=== PATIENT | female | born 1980 | race Caucasian/White ===

== ENCOUNTER 2024-01-27 11:17 | Observation (INO) ==
--- NOTE | 2024-01-27 11:30 | Emergency Department Note ---
Impression & Plan Abdominal pain, GI bleed, Dark stools ED Provider Note NAME: SUKI KEITH AGE: 43 SEX: F : 1980 ARRIVES VIA: Walk-In INFORMANT: Patient ED PROVIDER(S): Tony Clemente DO CHIEF COMPLAINT: Bright red blood and dark tarry stools HPI: Patient is a 43-year-old female with a past medical history of anxiety, depression, colitis, GERD with known stomach ulcers who presents to the ER for bright red blood per rectum that started yesterday and turned into black stools. She has had 3 episodes of black stools today combination with some bright red intermittently. She denies any blood thinners. No headache or change in vision. No chest pain or shortness of breath. No dysuria, urgency, or frequency. No other exacerbating or remitting factors. ADDITIONAL HISTORY OBTAINED: Per HPI Chronic Medical/Social Conditions Affecting Care: Per HPI PAST MEDICAL HISTORY:See Below PAST SURGICAL HISTORY:See Below FAMILY HISTORY:See Below SOCIAL HISTORY:See Below HOME MEDICATIONS:See Below ALLERGIES:See Below VITALS:See Below PHYSICAL EXAMINATION: GENERAL: Sitting up in bed, alert, well appearing, well nourished, no distress, non-toxic EYE EXAM: normal conjunctiva. PERRL and EOM's grossly intact. OROPHARYNX: mucous membranes are moist NECK: supple, no nuchal rigidity, no adenopathy, non-tender LUNGS: Clear to auscultation. Normal chest wall mechanics HEART: no murmurs, S1 normal and S2 normal ABDOMEN: abdomen soft, non-tender, normo-active bowel sounds, no masses, no rebound or guarding. BACK: Back is symmetrical on inspection and there is no deformity, no midline tenderness, no CVA tenderness. RECTAL: Hem neg no stool SKIN: no rashes and no bruising UPPER EXTREMITIES: upper extremities are grossly normal. LOWER EXTREMITIES: No pitting edema. NEURO EXAM: Normal sensorium, cranial nerves II-XII grossly intact, normal speech, no gross weakness of arms, no gross weakness of legs. MEDICAL DECISION MAKING: Patient is a 43-year-old female who presents ER for the above-stated complaint. External records were reviewed and gastroenterology's EGD performed at the end of December 2023 shows a gastric ulcer as well as a duodenal ulcer. IV was established blood work obtained. Labs show no significant leukocytosis or anemia. BMP with a slightly elevated chloride. No elevation in BUN to suggest an upper GI bleed. LFTs bilirubin is unremarkable. Lipase was normal. UA was negative. was negative. Rectal had no stool and was heme-negative. I discussed this with Dr. Mcfarland to see if this was someone they went to follow-up as an outpatient or observe overnight. They would prefer to admit the patient from a GI standpoint and watch closely with a history of gastric and duodenal ulcers. Patient has stopped the NSAIDs which she believes was the cause of her ulcers. Discussed case with the hospitalist for further evaluation management treatment. Patient was given fluids as well as Protonix. Consults/Care Managements Discussions: Per MDM Triage Nursing notes reviewed. Limited review of prior medical records performed Vital Signs: reviewed and remarkable for no significant abnormalities Differential diagnosis: Differential diagnoses includes but is not limited to gastritis, peptic ulcer disease, GERD, gallbladder disease, pancreatitis, small bowel obstruction, appendicitis, diverticulitis, hernia, urinary tract infection, torsion, /ectopic (if female), perforation, trauma, infectious. ER treatment provided: See below Diagnostics interpreted by me include EKG and cardiac monitoring as listed below: -Cardiac Monitoring: An order was placed for continuous cardiac monitoring. The monitor shows a rate of 70 with sinus rhythm. -ECG: none -Laboratory studies:Interpreted by me as stated above in MDM and shown below. Imaging studies: Xrays: As interpreted by me:none CTs show: none Procedures:none Critical Care: None Past Med/Surg History Problem List (Updated 01/27/24 @ 15:25 by Tony Clemente DO) Dark stools (Acute) GI bleed (Acute) Abdominal pain (Acute) GI bleed GERD (gastroesophageal reflux disease) Encounter for pre-operative examination Anxiety Depression Colitis Diarrhea Bloating Bloody stools Medical History (Updated 01/27/24 @ 15:25 by Tony Clemente DO) Duodenal ulcer Right hip pain pt recently had x-ray and mri, has potential hip labrum tear History of cardiac murmur as a child Colitis Bloating Diarrhea Chronic right ear pain unsure of cause, has seen ENT in past Hx of migraines Chronic headaches Surgical History Hx of laparoscopy x 4 Hx of appendectomy (1992) Family History Denies family history of Crohn's disease Colorectal cancer Ulcerative colitis Social History Smoking Status: Never smoker Second Hand Exposure: No; Do You Dip or Chew Tobacco: No; Hx Alcohol Use: Yes Hx Substance Use: No Preferred Language: Serbian Communication Ability: Effective French Drawer Required: No Beliefs That Will Affect Care: None Current Living Situation: Spouse Feels Safe at Home: Yes Assistive Devices: None Allergies Allergies Allergy/AdvReac Type Severity Reaction Status Date / Time No Known Allergies Allergy Verified 01/12/24 14:30 Home Meds Home Medications Medication Instructions Recorded Confirmed acetaminophen-caffeine 500 mg-65 1 tab PO Q12H PRN Pain 12/29/23 01/27/24 mg tablet ibuprofen 400 mg tablet 400 mg PO Q6H PRN Pain 12/29/23 01/27/24 Pepto-Bismol 1 dose PO DIRECTED PRN Gi Upset 01/27/24 01/27/24 Previous Rx's Medication Instructions Recorded omeprazole 40 mg capsule,delayed 40 mg PO DAILY #90 caps 01/12/24 release Results & Data (ED) Vital Signs Vital Signs - 24 hr 01/27/24 11:20 01/27/24 11:39 01/27/24 11:51 Temperature 36.5 C Temperature Source Temporal Artery Scan Pulse Rate 72 65 72 Pulse Rate [Apical] Pulse Rate from SpO2 Sensor Pulse Rhythm Pulse Rhythm [Apical] Pulse Strength [Apical] Respiratory Rate 19 16 Respiratory Effort / Characteristics Non-Labored Spontaneous Respiratory Depth Normal Respiratory Pattern Blood Pressure 114/75 Blood Pressure [Right Arm] Blood Pressure Mean 88 Blood Pressure Mean [Right Arm] Pulse Oximetry 99 Oxygen Delivery Method Room Air Sepsis Recent Fever Within 48 Hours No Sepsis New/Unexplained Change in Mental Status No Sepsis Action Taken by Nursing No Action Required 01/27/24 11:51 01/27/24 11:53 01/27/24 11:53 Temperature Temperature Source Pulse Rate 68 Pulse Rate [Apical] Pulse Rate from SpO2 Sensor Pulse Rhythm Pulse Rhythm [Apical] Pulse Strength [Apical] Respiratory Rate 19 Respiratory Effort / Characteristics Respiratory Depth Respiratory Pattern Blood Pressure 115/76 115/76 Blood Pressure [Right Arm] Blood Pressure Mean 88 88 Blood Pressure Mean [Right Arm] Pulse Oximetry Oxygen Delivery Method Sepsis Recent Fever Within 48 Hours Sepsis New/Unexplained Change in Mental Status Sepsis Action Taken by Nursing 01/27/24 11:54 01/27/24 11:55 01/27/24 11:55 Temperature Temperature Source Pulse Rate 61 62 Pulse Rate [Apical] 64 Pulse Rate from SpO2 Sensor 61 Pulse Rhythm Regular Pulse Rhythm [Apical] Regular Pulse Strength [Apical] Normal Respiratory Rate 12 18 14 Respiratory Effort / Characteristics Non-Labored Spontaneous Respiratory Depth Normal Respiratory Pattern Regular Blood Pressure Blood Pressure [Right Arm] 115/76 Blood Pressure Mean Blood Pressure Mean [Right Arm] 89 Pulse Oximetry 98 98 98 Oxygen Delivery Method Room Air Room Air Sepsis Recent Fever Within 48 Hours Sepsis New/Unexplained Change in Mental Status Sepsis Action Taken by Nursing 01/27/24 12:00 01/27/24 12:00 01/27/24 12:03 Temperature Temperature Source Pulse Rate 67 Pulse Rate [Apical] Pulse Rate from SpO2 Sensor 66 Pulse Rhythm Pulse Rhythm [Apical] Pulse Strength [Apical] Respiratory Rate 13 Respiratory Effort / Characteristics Respiratory Depth Respiratory Pattern Blood Pressure 108/80 108/80 Blood Pressure [Right Arm] Blood Pressure Mean 86 86 Blood Pressure Mean [Right Arm] Pulse Oximetry 100 Oxygen Delivery Method Sepsis Recent Fever Within 48 Hours Sepsis New/Unexplained Change in Mental Status Sepsis Action Taken by Nursing 01/27/24 12:24 01/27/24 12:30 01/27/24 12:30 Temperature Temperature Source Pulse Rate 70 Pulse Rate [Apical] Pulse Rate from SpO2 Sensor 70 Pulse Rhythm Pulse Rhythm [Apical] Pulse Strength [Apical] Respiratory Rate 19 Respiratory Effort / Characteristics Respiratory Depth Respiratory Pattern Blood Pressure 117/75 117/75 Blood Pressure [Right Arm] Blood Pressure Mean 86 86 Blood Pressure Mean [Right Arm] Pulse Oximetry 100 Oxygen Delivery Method Sepsis Recent Fever Within 48 Hours Sepsis New/Unexplained Change in Mental Status Sepsis Action Taken by Nursing 01/27/24 12:33 01/27/24 12:48 01/27/24 13:00 Temperature Temperature Source Pulse Rate 71 75 Pulse Rate [Apical] Pulse Rate from SpO2 Sensor 71 72 Pulse Rhythm Pulse Rhythm [Apical] Pulse Strength [Apical] Respiratory Rate 17 25 H Respiratory Effort / Characteristics Respiratory Depth Respiratory Pattern Blood Pressure 110/68 Blood Pressure [Right Arm] Blood Pressure Mean 82 Blood Pressure Mean [Right Arm] Pulse Oximetry 100 96 Oxygen Delivery Method Sepsis Recent Fever Within 48 Hours Sepsis New/Unexplained Change in Mental Status Sepsis Action Taken by Nursing 01/27/24 13:24 Temperature Temperature Source Pulse Rate 69 Pulse Rate [Apical] Pulse Rate from SpO2 Sensor 69 Pulse Rhythm Pulse Rhythm [Apical] Pulse Strength [Apical] Respiratory Rate 19 Respiratory Effort / Characteristics Respiratory Depth Respiratory Pattern Blood Pressure Blood Pressure [Right Arm] Blood Pressure Mean Blood Pressure Mean [Right Arm] Pulse Oximetry 99 Oxygen Delivery Method Sepsis Recent Fever Within 48 Hours Sepsis New/Unexplained Change in Mental Status Sepsis Action Taken by Nursing Laboratory Data 01/27/24 11:52 01/27/24 11:52 Lab Results 01/27/24 01/27/24 01/27/24 Range/Units 11:52 11:59 12:07 WBC 7.03 (4.8-10.8) K/ul RBC 4.18 L (4.20-5.40) M/uL Hgb 12.2 (12.0-16.0) g/dl Hct 37.5 (37.0-47.0) % MCV 89.7 (80.0-100.0) fL MCH 29.2 (25.0-34.0) pg MCHC 32.5 (32.0-36.0) g/dL RDW Std Deviation 39.8 (36.4-46.3) fL RDW Coeff of Michelle 12.2 (11.5-14.5) % Plt Count 254 (130-400) K/uL MPV 10.1 (9.4-12.4) fL Immature Gran % (Auto) 0.4 % Neut % (Auto) 67.8 % Lymph % (Auto) 22.0 % [place] % (Auto) 8.0 % Eos % (Auto) 1.4 % Baso % (Auto) 0.4 % Neut # (Auto) 4.76 (1.40-6.50) K/uL Lymph # (Auto) 1.55 (1.20-3.40) K/uL [place] # (Auto) 0.56 (0.11-0.59) K/uL Eos # (Auto) 0.10 (0.00-0.50) K/uL Baso # (Auto) 0.03 (0.00-0.20) K/uL Immature Gran # (Auto) 0.03 (0.01-0.20) K/uL Sodium 139 (136-145) mmol/L Potassium 3.6 (3.5-5.1) mmol/L Chloride 108 H (98-107) mmol/L Carbon Dioxide 24 (21-32) mmol/L Anion Gap 7 (3-11) BUN 11 (6-23) mg/dl Creatinine 0.75 (0.6-1.2) mg/dl Est Cr Clr Drug Dosing 90.0 ml/min Est GFR ( Amer) 113.1 ml/min Est GFR (Non-Af Amer) 97.6 ml/min BUN/Creatinine Ratio 14.7 (10-20) Glucose 94 (70-99(Fasting)) mg/dl Calcium 9.0 (8.6-10.3) mg/dl Total Bilirubin 0.7 (0.2-1.0) mg/dl AST 18 (13-39) U/L ALT 20 (7-52) U/L Alkaline Phosphatase 56 (34-104) U/L Total Protein 6.4 (6.0-8.3) gm/dl Albumin 4.5 (3.4-5.0) gm/dl Globulin 1.9 L (2.5-4.0) gm/dl Albumin/Globulin Ratio 2.4 H (0.9-2) Lipase 31 (11-82) U/L Urine Color Yellow Urine Appearance Clear (Clear) Urine pH 6.5 (4.5-7.5) Ur Specific [place] 1.006 (1.000-1.030) Urine Protein Negative (Negative) Urine Glucose (UA) Negative (Negative) Urine Ketones Negative (Negative) Urine Blood Negative (Negative) Urine Nitrite Negative (Negative) Urine Bilirubin Negative (Negative) Urine Urobilinogen Negative (Negative) Ur Leukocyte Esterase Negative (Negative) POC Ur Test NEG (NEG) Administered Medications Discontinued Medications Acetaminophen (Acetaminophen 325 Mg Tab) 650 mg PO NOW STA Stop: 01/27/24 13:22 Last Admin: 01/27/24 13:42 Dose: 650 mg Documented By: AM Sodium Chloride (Nss) 1,000 mls @ 999 mls/hr IV .Q1H1M ONE Stop: 01/27/24 12:28 Last Infusion: 01/27/24 13:43 Dose: Infused Documented By: Admin: 01/27/24 12:03 Dose: 999 mls/hr Documented By: JN Pantoprazole Sodium 40 mg/ (Syringe) 10 mls @ 5 mls/min IV NOW ONE Stop: 01/27/24 11:49 Last Admin: 01/27/24 12:10 Dose: 5 mls/min Documented By: JN Discharge Plan Visit Data Chief Complaint: GI Assessment Stated Complaint: GI PROBLEMS, BLACK STOOL, ABD PAIN, REF BY DOC ED Provider: Tony Clemente Discharge Problem: Abdominal pain, GI bleed, Dark stools Forms Stand Alone Forms: [employer] Prescriptions Prescriptions: No Action omeprazole 40 mg capsule,delayed release(DR/EC) 40 mg PO DAILY Qty: 90 3RF acetaminophen-caffeine 500-65 mg Tablet 1 tab PO Q12H PRN (Reason: Pain) ibuprofen 400 mg Tablet 400 mg PO Q6H PRN (Reason: Pain) Pepto-Bismol 1 dose PO DIRECTED PRN (Reason: Gi Upset) Referrals Referrals: Mushtaq Delgadillo [Primary Care Provider] - Discharge Problem: Abdominal pain Qualifiers: Abdominal location: unspecified location Qualified Code(s): R10.9 - Unspecified abdominal pain GI bleed Qualifiers: GI bleed type/associated pathology: unspecified gastrointestinal hemorrhage type Qualified Code(s): K92.2 - Gastrointestinal hemorrhage, unspecified
[2024-01-27] MEDS: SODIUM CHLORIDE 0.9% 1,000 ML IV ONE (12:03)
[2024-01-27] MEDS: PANTOprazole 40 MG in SYRINGE 0 ML IV ONE ×2 (12:10→16:15)
[2024-01-27 12:18] LABS: Appearance Urine Clear (Clear); Bilirubin Urine Negative (Negative); Blood Urine Negative (Negative); Color Urine Yellow; Glucose Urine UA Negative (Negative); Ketones Urine Negative (Negative); Leukocyte Esterase Urine Negative (Negative); Nitrite Urine Negative (Negative); Protein Urine Negative (Negative); Specific Gravity Urine 1.006 (1.000-1.030); Urobilinogen Urine Negative (Negative); pH Urine 6.5 (4.5-7.5)
[2024-01-27 12:50] LABS: Basophils # (auto) 0.03 K/uL (0.00-0.20); Basophils % (auto) 0.4 %; Eosinophils % (auto) 1.4 %; Hematocrit (blood only) 37.5 % (37.0-47.0); Hemoglobin 12.2 g/dl (12.0-16.0); Immature Granulocytes # (auto) 0.03 K/uL (0.01-0.20); Immature Granulocytes % (auto) 0.4 %; Lymphocytes # (auto) 1.55 K/uL (1.20-3.40); Mean Corpuscular Hemoglobin 29.2 pg (25.0-34.0); Mean Corpuscular Hgb Conc 32.5 g/dL (32.0-36.0); Mean Corpuscular Volume 89.7 fL (80.0-100.0); Mean Platelet Volume 10.1 fL (9.4-12.4); Monocytes # (auto) 0.56 K/uL (0.11-0.59); Neutrophils # (auto) 4.76 K/uL (1.40-6.50); Neutrophils % (auto) 67.8 %; Platelet Count 254 K/uL (130-400); RDW Coefficient of Variation 12.2 % (11.5-14.5); RDW Standard Deviation 39.8 fL (36.4-46.3); Red Blood Count 4.18 M/uL (4.20-5.40); White Blood Count 7.03 K/ul (4.8-10.8)
[2024-01-27 12:54] LABS: Alanine Aminotransferase 20 U/L (7-52); Albumin Globulin Ratio 2.4 (0.9-2); Albumin Level 4.5 gm/dl (3.4-5.0); Alkaline Phosphatase 56 U/L (34-104); Anion Gap 7 (3-11); Aspartate Aminotransferase 18 U/L (13-39); BUN Creatinine Ratio 14.7 (10-20); Bilirubin,Total 0.7 mg/dl (0.2-1.0); Blood Urea Nitrogen 11 mg/dl (6-23); Carbon Dioxide 24 mmol/L (21-32); Chloride 108 mmol/L (98-107); Est GFR (African American) 113.1 ml/min; Est GFR (Non-African American) 97.6 ml/min; Globulin 1.9 gm/dl (2.5-4.0); Glucose 94 mg/dl (70-99(Fasting)); Lipase 31 U/L (11-82); Potassium 3.6 mmol/L (3.5-5.1); Sodium 139 mmol/L (136-145); Total Protein 6.4 gm/dl (6.0-8.3)
[2024-01-27] MEDS: ACETAMINOPHEN 325 MG TAB PO STA (13:42)
--- NOTE | 2024-01-27 13:51 | Gastrointestinal Consultation ---
Date of Consultation January 27, 2024 Assessment & Plan (1) Bloody stools: 43 year old female with a recent EGD showing non-bleeding gastric ulcers, non- bleeding duodenal ulcers presenting with epigastric pain x 1 day w/ both black and bloody stools. She took Pepto x 1 dose. She is hemodynamically stable, HGB 12.2. She ate about a handful of almonds and a few sips of water around 03/1030 this AM. Maintain NPO status Arrange EGD timing pending discussion with attending and anesthesia IV PPI bolus/drip Trend HGB Monitor GI output Transfuse PRN per primary team We appreciate assistance in the management of any serological abnormality and corrections to include: hemoglobin >7, INR <2, platelets >50,000, potassium levels >3.5 but <5.3, and sodium levels within 5 points of the reference range prior to endoscopic evaluation. I spent a total of 60 minutes on the date of service in review of patient's record, and previously obtained information in person and appropriate medical visit, discussion and education of plan, with patient and/or caregiver, placing orders for tests/referral/procedures as medically necessary and documentation of pertinent clinical information in patient's medical records for their visit today. Supervising Physician Co-Signing Physician Notes I saw and examined this patient with our nurse practitioner and agree with her assessment and plan. Patient presents with recurrent GI bleeding. Hemodynamically stable. Abdomen soft nontender. Recent endoscopy revealed gastric and duodenal ulcers. Colonoscopy was negative. Etiology of recurrent GI bleeding is unclear. To consider small bowel source for bleeding in light of recent workup. However in light of recent endoscopy findings we will repeat endoscopy to exclude bleeding from the ulcers. As well as exclude other etiologies that could have been missed such as a [place]. If studies unrevealing need to consider a capsule endoscopy at some point. History of Present Illness Reason for Consultation: melena, BRBPR Requesting Physician: Bryn Attending Physician: Bryn History of Present Illness 43 year old female with history of gastric ulcer, PUD on EGD presenting with epigastric pain, epigastric pressure with report of diarrhea, black stool and BRBPR x 1 day. Pt was seen and evaluated, chart reviewed. Suggests she stopped the daily NSAIDs since finding out about and her PUD. Yesterday, developed upper abd discomfort explained as a pressure. Shortly after this started with diarrhea, BRBPR. Took two pepto's. Stool turned black, then was mixed with BRBPR. She did see some drops of BRB as well. No report of nausea/vomiting. No prior history of coffee ground emesis or hematemesis. No fever, chills, CP, SOB. EGD 2023: - Normal esophagus. - Acute gastritis, characterized by erythema. Biopsied. - Non-bleeding gastric ulcers with no stigmata of bleeding. - Non-bleeding duodenal ulcer with no stigmata of bleeding. Biopsied. Colonoscopy 2023: - The examined portion of the ileum was normal. - The examination was otherwise normal on direct and retroflexion views. - Biopsies were taken with a cold forceps from the entire colon for evaluation of microscopic colitis. Allergies Allergy/AdvReac Type Severity Reaction Status Date / Time No Known Allergies Allergy Verified 01/12/24 14:30 Home Medications Medication Instructions Recorded Confirmed Type acetaminophen-caffeine 500 mg-65 1 tab PO Q12H PRN Pain 12/29/23 01/27/24 History mg tablet ibuprofen 400 mg tablet 400 mg PO Q6H PRN Pain 12/29/23 01/27/24 History omeprazole 40 mg capsule,delayed 40 mg PO DAILY #90 caps 01/12/24 01/27/24 Rx release Patient History Medical History Right hip pain History of cardiac murmur as a child Colitis Bloating Diarrhea Chronic right ear pain Hx of migraines Chronic headaches Surgical History Hx of laparoscopy Hx of appendectomy (1992) Family History Denies family history of Crohn's disease Colorectal cancer Ulcerative colitis Social History Smoking Status: Never smoker Second Hand Exposure: No; Do You Dip or Chew Tobacco: No; Hx Alcohol Use: Yes Hx Substance Use: No Preferred Language: Malagasy Communication Ability: Effective Director Of Field Coordination Required: No Beliefs That Will Affect Care: None Current Living Situation: Spouse Feels Safe at Home: Yes Assistive Devices: None Review of Systems Review of Systems: All other findings negative except as noted in HPI. Physical Exam Constitutional: WD/WN, vitals as above Respiratory: normal respiratory effort, lungs clear to auscultation Cardiovascular: RRR, no murmur, no edema Gastrointestinal (Abdomen): Inspection/Auscultation: normal bowel sounds Percussion/Palpation: + abdomen tender and abdomen soft; no guarding and abdomen not rigid Skin: no rashes, warm and dry Results & Data Vital Signs (Past 12 Hours) Vital Signs Temp Pulse Pulse Resp BP BP Pulse Ox 01/27/24 13:24 69 19 99 01/27/24 13:00 110/68 01/27/24 12:48 75 25 H 96 01/27/24 12:33 71 17 100 01/27/24 12:30 117/75 01/27/24 12:30 117/75 01/27/24 12:24 70 19 100 01/27/24 12:03 67 13 100 01/27/24 12:00 108/80 01/27/24 12:00 108/80 01/27/24 11:55 62 14 98 01/27/24 11:55 64 18 115/76 98 01/27/24 11:54 61 12 98 01/27/24 11:53 115/76 01/27/24 11:53 115/76 01/27/24 11:51 68 19 01/27/24 11:51 72 01/27/24 11:39 65 16 01/27/24 11:20 36.5 C 72 19 114/75 99 O2 Del Method 01/27/24 13:24 01/27/24 13:00 01/27/24 12:48 01/27/24 12:33 01/27/24 12:30 01/27/24 12:30 01/27/24 12:24 01/27/24 12:03 01/27/24 12:00 01/27/24 12:00 01/27/24 11:55 Room Air 01/27/24 11:55 Room Air 01/27/24 11:54 01/27/24 11:53 01/27/24 11:53 01/27/24 11:51 01/27/24 11:51 01/27/24 11:39 01/27/24 11:20 Room Air Laboratory Results 01/27/24 01/27/24 01/27/24 Range/Units 12:07 11:59 11:52 WBC 7.03 (4.8-10.8) K/ul RBC 4.18 L (4.20-5.40) M/uL Hgb 12.2 (12.0-16.0) g/dl Hct 37.5 (37.0-47.0) % MCV 89.7 (80.0-100.0) fL MCH 29.2 (25.0-34.0) pg MCHC 32.5 (32.0-36.0) g/dL RDW Std Deviation 39.8 (36.4-46.3) fL RDW Coeff of Michelle 12.2 (11.5-14.5) % Plt Count 254 (130-400) K/uL MPV 10.1 (9.4-12.4) fL Immature Gran % (Auto) 0.4 % Neut % (Auto) 67.8 % Lymph % (Auto) 22.0 % [place] % (Auto) 8.0 % Eos % (Auto) 1.4 % Baso % (Auto) 0.4 % Neut # (Auto) 4.76 (1.40-6.50) K/uL Lymph # (Auto) 1.55 (1.20-3.40) K/uL [place] # (Auto) 0.56 (0.11-0.59) K/uL Eos # (Auto) 0.10 (0.00-0.50) K/uL Baso # (Auto) 0.03 (0.00-0.20) K/uL Immature Gran # (Auto) 0.03 (0.01-0.20) K/uL Sodium 139 (136-145) mmol/L Potassium 3.6 (3.5-5.1) mmol/L Chloride 108 H (98-107) mmol/L Carbon Dioxide 24 (21-32) mmol/L Anion Gap 7 (3-11) BUN 11 (6-23) mg/dl Creatinine 0.75 (0.6-1.2) mg/dl Est Cr Clr Drug Dosing 90.0 ml/min Est GFR ( Amer) 113.1 ml/min Est GFR (Non-Af Amer) 97.6 ml/min BUN/Creatinine Ratio 14.7 (10-20) Glucose 94 (70-99(Fasting)) mg/dl Calcium 9.0 (8.6-10.3) mg/dl Total Bilirubin 0.7 (0.2-1.0) mg/dl AST 18 (13-39) U/L ALT 20 (7-52) U/L Alkaline Phosphatase 56 (34-104) U/L Total Protein 6.4 (6.0-8.3) gm/dl Albumin 4.5 (3.4-5.0) gm/dl Globulin 1.9 L (2.5-4.0) gm/dl Albumin/Globulin Ratio 2.4 H (0.9-2) Lipase 31 (11-82) U/L Urine Color Yellow Urine Appearance Clear (Clear) Urine pH 6.5 (4.5-7.5) Ur Specific [place] 1.006 (1.000-1.030) Urine Protein Negative (Negative) Urine Glucose (UA) Negative (Negative) Urine Ketones Negative (Negative) Urine Blood Negative (Negative) Urine Nitrite Negative (Negative) Urine Bilirubin Negative (Negative) Urine Urobilinogen Negative (Negative) Ur Leukocyte Esterase Negative (Negative) POC Ur Test NEG (NEG) PG Care Time/CCT Total # of Minutes Spent Total Time Spent with Patient: Total time spent is greater than 50% in coordination of care (as documented) at patient's floor/unit and/or counseling patient: Coding Level of Care Code 67457 IN/OBS CONSULT LVL 4,60M Diagnoses Bloody stools K92.1
--- NOTE | 2024-01-27 14:37 | Anesthesiology Consultation ---
Date of Service January 27, 2024 Assessment & Plan (1) Encounter for pre-operative examination: Chart Review Chart Review: Acceptable Risk for Surgery History Surgery Operation Date: 01/27/24 07:00 Proposed Procedures p Esophagogastroduodenoscopy Dr. Bruna Mcfarland MD Height/Weight Height: 5 ft 3 in Weight: 68.8 kg Allergies Allergy/AdvReac Type Severity Reaction Status Date / Time No Known Allergies Allergy Verified 01/12/24 14:30 Medications Home Medications Medication Instructions Recorded Confirmed Last Taken acetaminophen-caffeine 500 mg-65 1 tab PO Q12H PRN Pain 12/29/23 01/27/24 Unknown mg tablet ibuprofen 400 mg tablet 400 mg PO Q6H PRN Pain 12/29/23 01/27/24 Unknown omeprazole 40 mg capsule,delayed 40 mg PO DAILY #90 caps 01/12/24 01/27/24 Unknown release Pepto-Bismol 1 dose PO DIRECTED PRN Gi Upset 01/27/24 01/27/24 Unknown Past Medical History Medical History (Updated 01/27/24 @ 14:37 by Iglesia Horton MD) Duodenal ulcer Right hip pain pt recently had x-ray and mri, has potential hip labrum tear History of cardiac murmur as a child Colitis Bloating Diarrhea Chronic right ear pain unsure of cause, has seen ENT in past Hx of migraines Chronic headaches Past Family History Family History Denies family history of Crohn's disease Colorectal cancer Ulcerative colitis Past Surgical History Surgical History Hx of laparoscopy x 4 Hx of appendectomy (1992) Social History Smoking Status: Never smoker Do You Dip or Chew Tobacco: No Hx Alcohol Use: Yes alcohol intake frequency: a few times a month Hx Substance Use: No substance use type: does not use Physical Exam Vital Signs Last Vital Signs Temp 36.5 C 01/27/24 11:20 Pulse 69 01/27/24 13:24 Resp 19 01/27/24 13:24 BP 110/68 01/27/24 13:00 Pulse Ox 99 01/27/24 13:24 O2 Del Method Room Air 01/27/24 11:55 Testing Laboratory Results 01/27/24 11:52 01/27/24 11:52 Urine Color Yellow 01/27/24 11:59 Urine Appearance Clear (Clear) 01/27/24 11:59 Urine pH 6.5 (4.5-7.5) 01/27/24 11:59 Ur Specific [place] 1.006 (1.000-1.030) 01/27/24 11:59 Urine Protein Negative (Negative) 01/27/24 11:59 Urine Glucose (UA) Negative (Negative) 01/27/24 11:59 Urine Ketones Negative (Negative) 01/27/24 11:59 Urine Nitrite Negative (Negative) 01/27/24 11:59 Ur Leukocyte Esterase Negative (Negative) 01/27/24 11:59 01/27/24 12:07 POC Ur Test NEG
--- NOTE | 2024-01-27 14:39 | History & Physical Report ---
Date of Service January 27, 2024 Assessment & Plan (1) GI bleed: Plan: Bright red blood in stool and abdominal cramping on 01/24-01/25 Melena the morning of 01/26 No hx of GI bleeds Hx of EGD on January 04 with gastric/duodenal ulcers Gastrology consult appreciated EGD scheduled the evening of 01/26 N.p.o. for now Trend H&H q4h x 2 Type and screen ordered; will defer ordering blood at this time as patient's Hgb is 12.2 Blood consent form obtained if needed Protonix 80 mg IV bolus + drip IV acetaminophen and Zofran PRN A.m. CBC, BMP, mag (2) Bloody stools: (3) Colitis: (4) Depression: (5) Anxiety: Plan Disposition: Admit to [facility] telemetry Full code N.p.o. for now, then advance to clear liquid diet as tolerated VTE PPx: SCDs; will defer chemical DVT PPx in the setting of acute GI bleed History of Present Illness Chief Complaint: GI bleed Primary Care Provider: Mushtaq Mejia is a pleasant 43-year-old female with PMH of bloody stools, GERD, colitis, anxiety, and depression. She presented for abdominal discomfort, dizziness, and bright red bloody stools that began on Wednesday 01/24. Patient reports she has been having episodes of abdominal pain and diarrhea over the past couple weeks that last 24 to 48 hours. On Tuesday she started having abdominal pain just below the umbilicus and cramping that she compared to labor pains. Radiation to the lower back. Pain is intermittent, and she characterizes it as a stabbing pain at times, and throbbing pain in her back. She rates it 3/10 at present, 8/10 at worst. Yesterday morning she was having diarrhea from 3 to 5 AM, and she reports it was not liquidy but like a "red jelly". Then this morning she had dark tarry stool for the first time. She has not been taking any pain medicine at home, as she was told to stop taking Excedrin for her headaches after being diagnosed with gastric/duodenal ulcers in December. She had both an EGD/colonoscopy on January 04; she reports that the colonoscopy was fine, but she had gastric/duodenal ulcers on EGD. No prior history of GI bleeds. She reports that she tried eating something this morning (waffles) but had to get up and go to the bathroom in the middle eating (within minutes) as the abdominal pain returned. Patient took omeprazole this morning, and this is her only regular medication. No past medical history of blood transfusions. She denies smoking, tobacco use, recent alcohol use. Patient's vitals are stable at time of admission. ED course: Protonix 40 mg IV Acetaminophen 650 mg p.o. NSS 1000 mL IV ROS: Patient endorses dizziness with movements the last couple days, heart burn and chest tightness last night (which patient reports resolved; did not feel like past episodes of heart burn; felt like something was "stuck" in her chest wall), and diarrhea (both bright red blood + melena). Patient denies fever, chills, night-sweats, headaches, chest pain, pain in left shoulder or arm, chest palpitations, pleuritic CP, hemoptysis, cough, nausea, vomiting, blood in urine, burning with urination, saddle anesthesia, or num bness/tingling in the arms or legs. Allergies Allergy/AdvReac Type Severity Reaction Status Date / Time No Known Allergies Allergy Verified 01/12/24 14:30 Home Medications Medication Instructions Recorded Confirmed Type acetaminophen-caffeine 500 mg-65 1 tab PO Q12H PRN Pain 12/29/23 01/27/24 History mg tablet ibuprofen 400 mg tablet 400 mg PO Q6H PRN Pain 12/29/23 01/27/24 History omeprazole 40 mg capsule,delayed 40 mg PO DAILY #90 caps 01/12/24 01/27/24 Rx release Pepto-Bismol 1 dose PO DIRECTED PRN Gi Upset 01/27/24 01/27/24 History Past Med/Surg History Problem List (Updated 01/27/24 @ 15:25 by Tony Clemente DO) Dark stools (Acute) GI bleed (Acute) Abdominal pain (Acute) GI bleed GERD (gastroesophageal reflux disease) Encounter for pre-operative examination Anxiety Depression Colitis Diarrhea Bloating Bloody stools Medical History (Updated 01/27/24 @ 15:25 by Tony Clemente DO) Duodenal ulcer Right hip pain pt recently had x-ray and mri, has potential hip labrum tear History of cardiac murmur as a child Colitis Bloating Diarrhea Chronic right ear pain unsure of cause, has seen ENT in past Hx of migraines Chronic headaches Surgical History Hx of laparoscopy x 4 Hx of appendectomy (1992) Family History Denies family history of Crohn's disease Colorectal cancer Ulcerative colitis Social History Smoking Status: Never smoker Second Hand Exposure: No; Do You Dip or Chew Tobacco: No; Hx Alcohol Use: Yes Hx Substance Use: No Preferred Language: Ukrainian Communication Ability: Effective Regional Education Manager Required: No Beliefs That Will Affect Care: None Current Living Situation: Spouse Feels Safe at Home: Yes Assistive Devices: None Review of Systems Review of Systems: See HPI above Physical Exam Physical Exam: General: no acute distress; anxious; pleasant affect; non-toxic appearing; well- nourished; cooperative; SpO2 99% on RA HEENT: normocephalic, atraumatic; no scleral icterus; PERRLA; vision and hearing grossly intact Neck: supple; no lymphadenopathy; trachea midline Skin: warm, dry without signs of tenting; no cyanosis; no rashes, bruising, lesions, or erythema noted CV: chest wall NTP; RRR; S1/S2 normal; no murmurs/rubs/gallops; pulses intact and symmetric at radial, DP, and PT Lungs: no acute respiratory distress; symmetrical chest wall expansion; clear breath sounds across all lung rodrigez w/o adventitious sounds; no wheezing ABD: Soft; tender to palpation just below the umbilicus; no rashes or bruising on the abdomen or flanks bilaterally; BS present; no rebound/guarding; no distention MSK: no tics or fasciculations; no edema noted in the LEs b/l, nonerythematous Neuro: A&Ox3; normal mood and affect; fluent speech; no focal deficits; sensation grossly intact in the LEs b/l Results & Data Results & Data Vital Signs (Past 12 Hours) Vital Signs Temp Pulse Pulse Resp BP BP Pulse Ox 01/27/24 13:24 69 19 99 01/27/24 13:00 110/68 01/27/24 12:48 75 25 H 96 01/27/24 12:33 71 17 100 01/27/24 12:30 117/75 01/27/24 12:30 117/75 01/27/24 12:24 70 19 100 01/27/24 12:03 67 13 100 01/27/24 12:00 108/80 01/27/24 12:00 108/80 01/27/24 11:55 62 14 98 01/27/24 11:55 64 18 115/76 98 01/27/24 11:54 61 12 98 01/27/24 11:53 115/76 01/27/24 11:53 115/76 01/27/24 11:51 68 19 01/27/24 11:51 72 01/27/24 11:39 65 16 01/27/24 11:20 36.5 C 72 19 114/75 99 O2 Del Method 01/27/24 13:24 01/27/24 13:00 01/27/24 12:48 01/27/24 12:33 01/27/24 12:30 01/27/24 12:30 01/27/24 12:24 01/27/24 12:03 01/27/24 12:00 01/27/24 12:00 01/27/24 11:55 Room Air 01/27/24 11:55 Room Air 01/27/24 11:54 01/27/24 11:53 01/27/24 11:53 01/27/24 11:51 01/27/24 11:51 01/27/24 11:39 01/27/24 11:20 Room Air Laboratory Results Abnormal lab results 01/27/24 Range/Units 11:52 RBC 4.18 L (4.20-5.40) M/uL Chloride 108 H (98-107) mmol/L Globulin 1.9 L (2.5-4.0) gm/dl Albumin/Globulin Ratio 2.4 H (0.9-2) Code Status & VTE Plan Code Status Full code VTE Prophylaxis Plan VTE Prophylaxis will be ordered: Yes Supervising Physician Co-Signing Physician Notes Patient seen and examined, chart reviewed, case discussed with Wilber Murdock PA-C and I agree with the assessment and plan as above except as otherwise noted Labs and images reviewed 43-year-old female who presents with bloody and black bowel movements. She reports she had multiple bloody bowel movements yesterday which then progressed to melanic/coffee-ground bowel movements. Does have a feeling of stomach cramps. No nausea/vomiting. EGD 01/05/2024 with nonbleeding gastric ulcers, nonbleeding duodenal ulcers. Hemoglobin 12.2. She is not tachycardic or hypotensive. BUN is not elevated. PPI bolus and drip ordered. GI following and anticipate EGD. Blood consent on file, no indication for transfusion at time of admission. Source of melena/bleeding includes upper GI with recent ulcers noted on EGD; however BUN is not markedly elevated. Agree with assessment and management as above. PG Care Time/CCT Total # of Minutes Spent Total Time Spent with Patient: Total time spent is greater than 50% in coordination of care (as documented) at patient's floor/unit and/or counseling patient: Coding [place] [address] INT INP/OBS CARE 3/75MIN Patient Type Established History Comprehensive Exam Comprehensive Medical Decision Making High Complexity Diagnoses GI bleed K92.2 Bloody stools K92.1 Colitis K52.9 Depression F32.A Anxiety F41.9
[2024-01-27] MEDS ORDERED: PROPOFOL IV EMULSION 10 MG/ML 20 ML VIAL IV ONE (15:00)
[2024-01-27] MEDS ORDERED: LIDOCAINE 2% 2 ML VIAL/AMP(20MG/ML) INFIL ONE (15:00)
[2024-01-27 15:43] LABS: Troponin I High Sensitivity < 2.3 pg/ml (0-14)
[2024-01-27] MEDS ORDERED: MIDAZOLAM HCL 1 MG/ML 2ML VIAL ONE (15:44)
[2024-01-27] MEDS ORDERED: fentaNYL citrate PF 100 MCG/2 ML VIAL IV PRN (15:50)
[2024-01-27] MEDS ORDERED: PROMETHAZINE HCL 6.25 MG in SODIUM CHLORIDE 0.9% 50 ML IV PRN (15:50)
[2024-01-27] MEDS ORDERED: ePHEDrine sulfate 50 MG/ML AMP IV PRN (15:50)
[2024-01-27] MEDS ORDERED: ATROPINE SULFATE 0.1 MG/ML 10ML SYR IV PRN (15:50)
[2024-01-27] MEDS ORDERED: ONDANSETRON INJ 2 MG/ML 2 ML VIAL IV PRN (15:50)
[2024-01-27 15:57] LABS: Hematocrit (blood only) 37.7 % (37.0-47.0); Hemoglobin 12.3 g/dl (12.0-16.0)
--- NOTE | 2024-01-27 16:10 | GI REPORT ---
[facility] Patient: SUKI KEITH : 1980 Sex at : Female Age: 43 Years Procedure: Upper GI endoscopy Date: 01/27/2024 Attending Physician: Kyle Mcfarland MD Referring MD: Tony Clemente Indications: - Suspected upper gastrointestinal bleeding Medications: - Monitored Anesthesia Care Complications: - No immediate complications. Estimated Blood Loss: - Estimated blood loss: None. Procedure: - Prior to the procedure, a History and Physical was performed, and patient medications and allergies were reviewed. The patient's tolerance of previous anesthesia was also reviewed. The risks and benefits of the procedure and the sedation options and risks were discussed with the patient. All questions were answered, and informed consent was obtained. [Anticoagulant Agents] [Days Prior to Procedure]. [ASA Grade]. After reviewing the risks and benefits, the patient was deemed in satisfactory condition to undergo the procedure. - The egd scope was introduced through the mouth and advanced to the second part of the duodenum. - The upper GI endoscopy was accomplished without difficulty. - The patient tolerated the procedure well. Findings: - The examined esophagus was normal. - The entire examined stomach was normal. - The examined duodenum was normal. Impression: - Normal esophagus. - Normal stomach. - Normal examined duodenum. - No specimens collected. Recommendation: - Resume previous diet. - Patient has a contact number available for emergencies. The signs and symptoms of potential delayed complications were discussed with the patient. Return to normal activities tomorrow. Written discharge instructions were provided to the patient. Procedure Code(s): - 68474, Esophagogastroduodenoscopy, flexible, transoral; diagnostic, including collection of specimen(s) by brushing or washing, when performed (separate procedure) CPT(R) - 2023 copyright [employer]. All Rights Reserved. The CPT codes, CCI edits and ICD codes generated are intended as suggestions and were generated based on input data. These codes are preliminary and upon snack stewardess review may be revised to meet current compliance and payer requirements. The provider is responsible for the final determination of appropriate codes, and modifiers. Kyle Mcfarland MD This document has been electronically signed. Note Initiated:01/27/2024 Note Completed:01/27/2024 4:09 PM \\[email or web address]\[email or web address]\[id number]
[2024-01-27] MEDS: PANTOprazole 40 MG in DEXTROSE 5% MINI-B 100 ML IV SCH (16:16)
--- NOTE | 2024-01-27 16:48 | Anesthesiology Progress Note ---
Date of Service January 27, 2024 Anesthesia Post Procedure Vital Signs Vital Signs: Temp Pulse Pulse Resp BP BP BP 01/27/24 16:40 36.2 C L 74 19 108/69 01/27/24 16:30 72 20 110/72 01/27/24 16:20 75 20 112/77 01/27/24 16:10 36.3 C L 83 20 108/60 01/27/24 15:38 36.8 C 72 20 118/72 01/27/24 15:33 01/27/24 13:24 69 19 01/27/24 13:00 110/68 01/27/24 12:48 75 25 H 01/27/24 12:33 71 17 01/27/24 12:30 117/75 01/27/24 12:30 117/75 01/27/24 12:24 70 19 01/27/24 12:03 67 13 01/27/24 12:00 108/80 01/27/24 12:00 108/80 01/27/24 11:55 62 14 01/27/24 11:55 64 18 115/76 01/27/24 11:54 61 12 01/27/24 11:53 115/76 01/27/24 11:53 115/76 01/27/24 11:51 68 19 01/27/24 11:51 72 01/27/24 11:39 65 16 01/27/24 11:20 36.5 C 72 19 114/75 Pulse Ox O2 Del Method 01/27/24 16:40 99 Room Air 01/27/24 16:30 99 Room Air 01/27/24 16:20 97 Room Air 01/27/24 16:10 99 Room Air 01/27/24 15:38 98 Room Air 01/27/24 15:33 Room Air 01/27/24 13:24 99 01/27/24 13:00 01/27/24 12:48 96 01/27/24 12:33 100 01/27/24 12:30 01/27/24 12:30 01/27/24 12:24 100 01/27/24 12:03 100 01/27/24 12:00 01/27/24 12:00 01/27/24 11:55 98 Room Air 01/27/24 11:55 98 Room Air 01/27/24 11:54 98 01/27/24 11:53 01/27/24 11:53 01/27/24 11:51 01/27/24 11:51 01/27/24 11:39 01/27/24 11:20 99 Room Air Pain Intensity Abdomen: Pain Intensity: 4 Transfer of Care Handoff Completed per policy Notes Mental Status: alert / awake / arousable and participated in evaluation Patient Amnestic to Procedure: Yes Nausea / Vomiting: adequately controlled Pain: adequately controlled Airway Patency, RR, SpO2: stable & adequate BP & HR: stable & adequate Hydration State: stable & adequate Anesthetic Complications: no major complications apparent and Pt Satisfied with anesthetic care
[2024-01-27] MEDS: ACETAMINOPHEN 1000 MG/100 ML IV IV ONE (16:55)
[2024-01-27 20:38] LABS: Hematocrit (blood only) 35.4 % (37.0-47.0); Hemoglobin 11.4 g/dl (12.0-16.0)
[2024-01-27] MEDS: ACETAMINOPHEN 1,000 MG/100 ML VIAL IV STA (21:06)
[2024-01-28] MEDS: ACETAMINOPHEN 1,000 MG/100 ML VIAL IV PRN (03:32)
[2024-01-28 06:42] LABS: Basophils # (auto) 0.02 K/uL (0.00-0.20); Basophils % (auto) 0.5 %; Eosinophils # (auto) 0.09 K/uL (0.00-0.50); Hematocrit (blood only) 33.6 % (37.0-47.0); Hemoglobin 10.9 g/dl (12.0-16.0); Immature Granulocytes # (auto) 0.01 K/uL (0.01-0.20); Immature Granulocytes % (auto) 0.2 %; Lymphocytes # (auto) 1.09 K/uL (1.20-3.40); Lymphocytes % (auto) 24.7 %; Mean Corpuscular Hemoglobin 29.2 pg (25.0-34.0); Mean Corpuscular Hgb Conc 32.4 g/dL (32.0-36.0); Mean Corpuscular Volume 90.1 fL (80.0-100.0); Mean Platelet Volume 10.1 fL (9.4-12.4); Monocytes # (auto) 0.53 K/uL (0.11-0.59); Neutrophils # (auto) 2.68 K/uL (1.40-6.50); Neutrophils % (auto) 60.6 %; Platelet Count 204 K/uL (130-400); RDW Coefficient of Variation 12.2 % (11.5-14.5); RDW Standard Deviation 39.8 fL (36.4-46.3); Red Blood Count 3.73 M/uL (4.20-5.40); White Blood Count 4.42 K/ul (4.8-10.8)
[2024-01-28 07:09] LABS: BUN Creatinine Ratio 8.6 (10-20); Creatinine Clr Calc Pharmacy 95.2 ml/min; Est GFR (Non-African American) 106.1 ml/min; Magnesium 1.8 mg/dl (1.7-2.4); Potassium 3.5 mmol/L (3.5-5.1)
--- NOTE | 2024-01-28 07:48 | Hospitalist Progress Note ---
Date of Service January 28, 2024 Assessment & Plan (1) GI bleed: Plan: Bright red blood in stool and abdominal cramping on 01/24-01/25 Melena the morning of 01/26 Hx of EGD on January 04 with gastric/duodenal ulcers. Colonoscopy was unremarkable Gastrology consult appreciated EGD performed 01/27/2024 with normal esophagus, stomach, examined duodenum. No specimens collected. Recommendation to resume previous diet and monitor Hgb is 10.9. No indication for transfusion of packed red blood cells. Patient initially placed on Protonix 80 mg IV bolus + drip. With regards to normal EGD, will discontinue IV pantoprazole and initiate oral pantoprazole 40 mg p.o. daily until follow-up with GI Advance diet as tolerated Will obtain CT abdomen pelvis with and without contrast to look for other etiology that may have been missed with EGD and colonoscopy as patient has persistent dark stool and abdominal pain (2) Abdominal pain: Plan: Minimal pain today but does have some cramping which seems exacerbated with eating CT 12/12/2023 with enteritis and colitis and no evidence acute diverticulitis. Repeat CT abdomen pelvis with contrast as patient has persistent dark stool and abdominal pain On examination, abdomen is not rigid. No evidence of surgical belly (3) Abnormal EKG: Plan: EKG on admission with normal sinus rhythm and a QTc of [address] and T wave abnormalities. Repeat EKG this morning (4) History of migraine headaches: Plan: Patient complaining of headache this morning. Typically takes Excedrin at home. While inpatient, will order Fioricet Plan Disposition: Admit to [facility] telemetry Full code VTE PPx: SCDs; will defer chemical DVT PPx in the setting of acute GI bleed Admission and Anticipated Discharge Date Admission Date: January 27, 2024 Supervising Physician Co-Signing Physician Notes Attending Attestation - Chart reviewed, care plan d/w MENDY Oleary. I agree w/ the cline components of his documentation. Plan - CT a/p with PO/IV contrast - obtain due to crampy abd pain and recent GI bleeding. Trend H/H. Negative EGD makes small bowel the likely source for recent bleeding. Agree with outpatient capsule endoscopy. Ted Cisneros MD Subjective Attending: Dr. Cisneros This is a 43-year-old female admitted for GI bleed. She was seen by gastroenterology and was taken for EGD which was unremarkable. Patient's hemoglobin on admission was 12.2. It has trended downward to 11.4 and now is 10.9. Hematocrit is 37.5, 35.4, 33.6 respectively. Patient has a typical systolic blood pressure of 1 18-1 22. Currently her blood pressure is 97/59. EKG performed on admission showed some nonspecific ST abnormalities. Repeat EKG is ordered and pending. Electrolytes are balanced Continues with postprandial pain. Pain is a cramping pain rather than a stabbing or burning pain. Small bowel movement this morning with dark stool. No hematochezia or bright red blood per rectum. No tenesmus. Review of Systems 2 Review of Systems: A total of 10 systems was reviewed and is negative other than as listed in the HPI Physical Exam 2 Physical Exam: GENERAL : No acute distress EYES: No icterus, gaze conjugate NOSE: No evidence of epistaxis MOUTH: No lesions or candidiasis NECK: Supple LUNGS: CTA B/L, no wheezes, rales or rhonchi HEART: Regular, rate controlled ABDOMEN: Soft, NT, ND, BS Present. Tender to deep palpation in the sigmoid region. No high-pitched tinkling on auscultation EXTREMITIES: No LE edema, pedal pulses intact NEURO: A&OX3 Results & Data Results & Data Vital Signs (Past 12 Hours) Vital Signs Temp Pulse Pulse Resp BP Pulse Ox O2 Del Method 01/28/24 07:00 63 01/28/24 02:23 36.8 C 67 16 97/59 L 97 Room Air 01/27/24 23:20 36.4 C L 57 L 18 93/63 L 98 Room Air 01/27/24 22:34 78 Laboratory Results 01/28/24 05:42 01/28/24 05:42 Diagnostic Findings Esophagogastroduodenoscopy 01/27/2024 Impression: - Normal esophagus. - Normal stomach. - Normal examined duodenum. - No specimens collected. PG Care Time/CCT Total # of Minutes Spent Total Time Spent with Patient: Total time spent is greater than 50% in coordination of care (as documented) at patient's floor/unit and/or counseling patient: 35 minutes over 2 visits. Second visit with present Coding Level of Care Code 96525 SUB INP/OBS CARE 2/35MIN Diagnoses GI bleed K92.2 Abdominal pain R10.9 Abdominal location: unspecified location Abnormal EKG R94.31 History of migraine headaches Z86.69 Time Spent (min) 35 Comment 35 minutes over 2 visits (2) Abdominal pain Abdominal location: unspecified location Qualified Code(s): R10.9 - Unspecified abdominal pain
--- NOTE | 2024-01-28 08:27 | Electrocardiogram Report ---
Test Reason : Blood Pressure : */* mmHG Vent. Rate : 65 BPM Atrial Rate : 65 BPM P-R Int : 130 ms QRS Dur : 88 ms QT Int : 380 ms P-R-T Axes : 56 46 224 degrees QTcB Int : 395 ms Poor data quality, interpretation may be adversely affected Normal sinus rhythm Nonspecific T wave abnormality Anterior leads Abnormal ECG No previous ECGs available Confirmed by Alexis Ray ([id number]) on 01/28/2024 8:26:38 AM Referred By: Nayla Wheat Confirmed By: Alexis Ray
[2024-01-28] MEDS: BUTALBITAL/ACETAMIN/CAFFEINE TAB PO STA (08:29)
[2024-01-28] MEDS: PANTOprazole 40 MG TAB PO SCH (13:07)
[2024-01-28] MEDS: ONDANSETRON INJ 2 MG/ML 2 ML VIAL IV PRN (14:21)
--- NOTE | 2024-01-28 14:49 | Electrocardiogram Report ---
Test Reason : Blood Pressure : */* mmHG Vent. Rate : 67 BPM Atrial Rate : 67 BPM P-R Int : 142 ms QRS Dur : 86 ms QT Int : 426 ms P-R-T Axes : 51 56 44 degrees QTcB Int : 450 ms Normal sinus rhythm Low voltage QRS Minor Nonspecific T wave abnormality Anterior leads Abnormal ECG When compared with ECG of 27-Jan-2024 17:16, No significant change Confirmed by Alexis Ray ([id number]) on 01/28/2024 2:49:12 PM Referred By: Nayla Wheat Confirmed By: Alexis Ray
[2024-01-28] MEDS: BUTALBITAL/ACETAMIN/CAFFEINE TAB PO PRN (15:38)
[2024-01-28] MEDS: OPTIRAY 320 100ml IV ONE (20:36)
--- NOTE | 2024-01-28 23:14 | CT Scan Report ---
Exam(s): CT ABDOMEN + PELVIS With Contrast Oral - High Density Amt: BARIUM, IV Amt: 94ML OPTIRAY 320 EXAM: CT Abdomen and Pelvis With Intravenous Contrast CLINICAL HISTORY: Reason for exam: Colitis, enteritis, nausea. TECHNIQUE: Axial computed tomography images of the abdomen and pelvis with intravenous contrast. CTDI is 13.93 mGy and DLP is 728.27 mGy-cm. Automated exposure control was utilized for the study. A dose lowering technique was utilized adhering to the principles of ALARA. CONTRAST: Patient received BARIUM of Oral - High Density and 94ML OPTIRAY 320 of IV contrast COMPARISON: No relevant prior studies available. FINDINGS: ABDOMEN: Liver: Unremarkable. Gallbladder and bile ducts: Unremarkable. Pancreas: Unremarkable. Spleen: Unremarkable. Adrenals: Unremarkable. Kidneys and ureters: Unremarkable. No obstructing stones. No hydronephrosis. Stomach and bowel: No bowel obstruction or inflammatory changes along the GI tract. PELVIS: Appendix: No findings to suggest acute appendicitis. Bladder: Unremarkable. Reproductive: IUD within the uterus. No adnexal lesion. ABDOMEN and PELVIS: Intraperitoneal space: Physiologic free fluid within the pelvis. No free air. No significant fluid collection. Bones/joints: No acute fracture. Soft tissues: Unremarkable. Vasculature: Unremarkable. Lymph nodes: Unremarkable. IMPRESSION: No acute findings in the abdomen or pelvis. Electronically signed by: Sánchez Boyd MD 01/28/24 23:13 PM
[2024-01-29] MEDS: ACETAMINOPHEN 1,000 MG/100 ML VIAL IV STA (03:34)
[2024-01-29 03:43] VITALS: TEMP 98.1
[2024-01-29 06:36] LABS: Basophils # (auto) 0.03 K/uL (0.00-0.20); Basophils % (auto) 0.5 %; Eosinophils # (auto) 0.18 K/uL (0.00-0.50); Eosinophils % (auto) 2.7 %; Hemoglobin 12.1 g/dl (12.0-16.0); Immature Granulocytes # (auto) 0.02 K/uL (0.01-0.20); Immature Granulocytes % (auto) 0.3 %; Lymphocytes % (auto) 16.7 %; Mean Corpuscular Hemoglobin 29.4 pg (25.0-34.0); Mean Corpuscular Hgb Conc 32.7 g/dL (32.0-36.0); Mean Corpuscular Volume 89.8 fL (80.0-100.0); Monocytes % (auto) 9.1 %; Neutrophils # (auto) 4.66 K/uL (1.40-6.50); Neutrophils % (auto) 70.7 %; Platelet Count 238 K/uL (130-400); RDW Coefficient of Variation 11.9 % (11.5-14.5); RDW Standard Deviation 38.9 fL (36.4-46.3); Red Blood Count 4.12 M/uL (4.20-5.40); White Blood Count 6.59 K/ul (4.8-10.8)
[2024-01-29 06:55] LABS: BUN Creatinine Ratio 10.8 (10-20); Creatinine Clr Calc Pharmacy 79.9 ml/min; Est GFR (African American) 100.1 ml/min; Est GFR (Non-African American) 86.4 ml/min; Potassium 3.8 mmol/L (3.5-5.1)
[2024-01-29 07:38] VITALS: RESP 16; O2SAT 94
[2024-01-29] MEDS: POLYETHYLENE (MIRALAX) 17 GM PACK PO STA (09:17)
--- NOTE | 2024-01-29 10:01 | Discharge Summary ---
Date of Service January 29, 2024 Admission HPI Per Admitting Provider Jackie Keith is a pleasant 43-year-old female with PMH of bloody stools, GERD, colitis, anxiety, and depression. She presented for abdominal discomfort, dizziness, and bright red bloody stools that began on Wednesday 01/24. Patient reports she has been having episodes of abdominal pain and diarrhea over the past couple weeks that last 24 to 48 hours. On Tuesday she started having abdominal pain just below the umbilicus and cramping that she compared to labor pains. Radiation to the lower back. Pain is intermittent, and she characterizes it as a stabbing pain at times, and throbbing pain in her back. She rates it 3/10 at present, 8/10 at worst. Yesterday morning she was having diarrhea from 3 to 5 AM, and she reports it was not liquidy but like a "red jelly". Then this morning she had dark tarry stool for the first time. She has not been taking any pain medicine at home, as she was told to stop taking Excedrin for her headaches after being diagnosed with gastric/duodenal ulcers in December. She had both an EGD/colonoscopy on January 04; she reports that the colonoscopy was fine, but she had gastric/duodenal ulcers on EGD. No prior history of GI bleeds. She reports that she tried eating something this morning (waffles) but had to get up and go to the bathroom in the middle eating (within minutes) as the abdominal pain returned. Patient took omeprazole this morning, and this is her only regular medication. No past medical history of blood transfusions. She denies smoking, tobacco use, recent alcohol use. Patient's vitals are stable at time of admission. ED course: Protonix 40 mg IV Acetaminophen 650 mg p.o. NSS 1000 mL IV ROS: Patient endorses dizziness with movements the last couple days, heart burn and chest tightness last night (which patient reports resolved; did not feel like past episodes of heart burn; felt like something was "stuck" in her chest wall), and diarrhea (both bright red blood + melena). Patient denies fever, chills, night-sweats, headaches, chest pain, pain in left shoulder or arm, chest palpitations, pleuritic CP, hemoptysis, cough, nausea, vomiting, blood in urine, burning with urination, saddle anesthesia, or numbness/tingling in the arms or legs. Admission Exam (Per Admitting) Constitutional Physical Exam: General: no acute distress; anxious; pleasant affect; non-toxic appearing; well- nourished; cooperative; SpO2 99% on RA HEENT: normocephalic, atraumatic; no scleral icterus; PERRLA; vision and hearing grossly intact Neck: supple; no lymphadenopathy; trachea midline Skin: warm, dry without signs of tenting; no cyanosis; no rashes, bruising, lesions, or erythema noted CV: chest wall NTP; RRR; S1/S2 normal; no murmurs/rubs/gallops; pulses intact and symmetric at radial, DP, and PT Lungs: no acute respiratory distress; symmetrical chest wall expansion; clear breath sounds across all lung rodrigez w/o adventitious sounds; no wheezing ABD: Soft; tender to palpation just below the umbilicus; no rashes or bruising on the abdomen or flanks bilaterally; BS present; no rebound/guarding; no distention MSK: no tics or fasciculations; no edema noted in the LEs b/l, nonerythematous Neuro: A&Ox3; normal mood and affect; fluent speech; no focal deficits; sensation grossly intact in the LEs b/l Discharge Data Consultations 01/27/24 13:31 Consult Gastroenterology Stat Procedures Performed Operation Date: 01/27/24 07:00 Actual Procedures p Esophagogastroduodenoscopy(Not Applicable) - Kyle Mcfarland MD Impression: - Normal esophagus. - Normal stomach. - Normal examined duodenum. - No specimens collected. Recommendation: - Resume previous diet. - Patient has a contact number available for emergencies. The signs and symptoms of potential delayed complications were discussed with the patient. Return to normal activities tomorrow. Written discharge instructions were provided to the patient. [facility], [place] [phone] CT Scan Report Patient: JACKIE KEITH Admit Date: 01/27/24 MR#: [id number] Address1: [address] Acct ID:[id number] Address2: Date: 1980 [facility] Zip: [place] [address] Age: 43 Location: Sex: F Room/Bed: [facility] Att Phy: Ted Cisneros MD Diagnosis: GI BLEED Lisandra Phy: Mushtaq Delgadillo M.D. Service Date: 01/28/24 [facility] Phy: Interpreting Phy: Sánchez Boyd MDAdmit Phy: Andrew Lazo MD Ordering Phy: Thee Oleary PA-C cc: ~ Exam(s): CT ABDOMEN + PELVIS With Contrast Oral - High Density Amt: BARIUM, IV Amt: 94ML OPTIRAY 320 EXAM: CT Abdomen and Pelvis With Intravenous Contrast CLINICAL HISTORY: Reason for exam: Colitis, enteritis, nausea. TECHNIQUE: Axial computed tomography images of the abdomen and pelvis with intravenous contrast. CTDI is 13.93 mGy and DLP is 728.27 mGy-cm. Automated exposure control was utilized for the study. A dose lowering technique was utilized adhering to the principles of ALARA. CONTRAST: Patient received BARIUM of Oral - High Density and 94ML OPTIRAY 320 of IV contrast COMPARISON: No relevant prior studies available. FINDINGS: ABDOMEN: Liver: Unremarkable. Gallbladder and bile ducts: Unremarkable. Pancreas: Unremarkable. Spleen: Unremarkable. Adrenals: Unremarkable. Kidneys and ureters: Unremarkable. No obstructing stones. No hydronephrosis. Stomach and bowel: No bowel obstruction or inflammatory changes along the GI tract. PELVIS: Appendix: No findings to suggest acute appendicitis. Bladder: Unremarkable. Reproductive: IUD within the uterus. No adnexal lesion. ABDOMEN and PELVIS: Intraperitoneal space: Physiologic free fluid within the pelvis. No free air. No significant fluid collection. Bones/joints: No acute fracture. Soft tissues: Unremarkable. Vasculature: Unremarkable. Lymph nodes: Unremarkable. IMPRESSION: No acute findings in the abdomen or pelvis. Electronically signed by: Sánchez Boyd MD 01/28/24 23:13 PM Physical examination on discharge: GENERAL : No acute distress EYES: No icterus, gaze conjugate NOSE: No evidence of epistaxis MOUTH: No lesions or candidiasis NECK: Supple LUNGS: CTA B/L, no wheezes, rales or rhonchi HEART: Regular, rate controlled ABDOMEN: Soft, NT, ND, BS Present. Very minimal tenderness in the lower mid abdomen. EXTREMITIES: No LE edema, pedal pulses intact NEURO: A&OX3 Hospital Course (1) GI bleed: Bright red blood in stool and abdominal cramping on 01/24-01/25 Melena the morning of 01/26 Hx of EGD on January 04 with gastric/duodenal ulcers. Colonoscopy was unremarkable Gastrology consult appreciated EGD performed 01/27/2024 with normal esophagus, stomach, examined duodenum. No specimens collected. Recommendation to resume previous diet and monitor Hgb is 10.9. No indication for transfusion of packed red blood cells. Patient initially placed on Protonix 80 mg IV bolus + drip. With regards to normal EGD, will discontinue IV pantoprazole and initiate oral pantoprazole 40 mg p.o. daily until follow-up with GI Advance diet as tolerated CT abdomen pelvis with and without contrast with no acute findings. Follow-up with gastroenterology with KEYONNA Corbett (2) Abdominal pain: Primarily resolved with only occasional cramping. Bowel movement this morning with no diarrhea. Small area of dark stool CT 12/12/2023 with enteritis and colitis and no evidence acute diverticulitis. Repeat CT abdomen pelvis with contrast with no acute findings Continue with MiraLAX daily as needed for bowel movement Follow-up with primary care in the next 7 to 10 days Patient should also follow up with [facility] as she has an IUD that could be causing inflammation, although not appreciated on CT imaging. She has scheduled appointment later this month with [facility] in [place] and is encouraged to follow through with that appointment. She reports that she is up to date with mammograms and PAP smears with no previous concerning findings. (3) Abnormal EKG: EKG on admission with normal sinus rhythm and a QTc of [address] and T wave abnormalities. Repeat EKG with low voltage QRS. Patient is in normal sinus rhythm. Minor nonspecific T wave abnormality in anterior leads. No chest pain or tightness noted. Follow-up with PCP with chest pain or shortness of breath. (4) History of migraine headaches: Patient complaining of headache this morning. Typically takes Excedrin at home. While inpatient, Fioricet was effective Further management by PCP as an outpatient Plan Disposition: Admit to [facility] telemetry Full code VTE PPx: SCDs; will defer chemical DVT PPx in the setting of acute GI bleed Supervising Physician Co-Signing Physician Notes Attending Attestation and Discharge Note: Pt seen/examined, chart reviewed, discharge care plan d/w MENDY Oleary. I agree w/ the cline components of his documentation. 43yo female with recent h/o gastritis, gastric ulcers, and duodenal ulcer - dx on EGD 01/05/24 - presented with recurrent abd pain & melena stool. [facility] - underwent repeat EGD which showed resolution of the previously identified gastritis/ulcers. We performed CT abd/pelvis which was unremarkable and showed no acute findings. H/H were stable while here - discharge hemoglobin was 12.1. She was tolerating a diet on day of discharge. Due to normal colonoscopy on January 05, 2024, as well as normal EGD this admission - she will need outpatient capsule endoscopy to look for small bowel pathology that could account for her melena & ongoing GI symptoms. Discharge exam: gen - NAD, looks well mouth - MMM neck - no JVD heart - RRR, s1 s2, no murmur lungs - CTA b/l abd - soft NT ND BS+ ext - no edema, pulses 2+ b/l Ted Cisneros MD Coding Level of Care Code 79210 INP/OBS DISCH >30 MIN Diagnoses GI bleed K92.2 Abdominal pain R10.9 Abdominal location: unspecified location Abnormal EKG R94.31 History of migraine headaches Z86.69 Time Spent (min) 40
[2024-01-29 10:12] VITALS: BP 102/67; PULSE 70
== END 2024-01-29 10:46 | disposition home or self-care (01) | DRG 379 ==
LOC: ED 11:17 → OR 15:40 → INTOOBSV 15:41 → 2N 15:41 → SUATTDRO 15:41 → OR 16:05